=== PATIENT | female | born 1940 | race Caucasian/White ===

== ENCOUNTER 2021-06-14 05:38 | Inpatient (IN) | payer OTHER ==
[2021-06-13 11:31] LABS: COVID AG,FIA SOURCE NASOPHARYNGEAL
[~2021-06-14] VITALS: Ht 154.9 cm; Wt 48.6 kg
[~2021-06-14 05:38] MED LIST: AMLO-258 PO; ASPI-1450 PO; ATOR10TA84 PO; CHOL-35 PO; DONE10TA8 PO; FERR-89 PO; MEMA10TA11 PO; MIRT-89 PO; RINGERS SOLUTION,LACTATED 1,000 ML IV ONE; VALS160T2 PO
[2021-06-14] MEDS ORDERED: RINGERS SOLUTION,LACTATED 1,000 ML IV ONE ×2 (06:00→08:36)
[2021-06-14] MEDS ORDERED: SODIUM CL IRRIG SOLN BAG 3,000 ML IRRIG ONE (06:36)
[2021-06-14] MEDS ORDERED: BUPIVACAINE HCL/PF 0.5% 30 ML VIAL ONE (06:36)
[2021-06-14] MEDS ORDERED: BUPIVACAINE LIPOSOME/PF 1.3%-13.3MG/ML SUSPENSION 20 ML VIAL INJ ONE (06:45)
[2021-06-14] MEDS ORDERED: TRANEXAMIC ACID 1,000 MG in DEXTROSE 5%-WATER 50 ML IV ONE (06:45)
[2021-06-14] MEDS ORDERED: ACETAMINOPHEN 1000 MG/ISO-OSM 100 ML IV ONE ×2 (07:07→07:10)
[2021-06-14] MEDS ORDERED: HYDROmorphone 2 MG/ML VIAL IVP PRN ×2 (09:00)
[2021-06-14] MEDS ORDERED: FentaNYL CITRATE PF 100 MCG/2 ML VIAL IVP PRN (09:00)
[2021-06-14] MEDS ORDERED: SUGAMMADEX SODIUM 200 MG/2 ML VIAL IVP ONE (09:12)
[2021-06-14] MEDS ORDERED: BISACODYL 10 MG RECTAL RECTAL SUPPOSITORY PR PRN (09:45)
[2021-06-14] MEDS ORDERED: SODIUM CHLORIDE 0.9% 1,000 ML IV SCH (09:45)
[2021-06-14] MEDS ORDERED: BENZOCAINE/MENTHOL LOZENGE PO PRN (09:45)
[2021-06-14] MEDS ORDERED: MAG HYDROX/AL HYDROX/SIMETH 30 ML SUSP UDCUP PO PRN (09:45)
[2021-06-14] MEDS ORDERED: ONDANSETRON HCL 4 MG/2 ML VIAL IVP PRN (09:45)
[2021-06-14] MEDS ORDERED: DiphenhydrAMINE HCL 50 MG/ML VIAL IVP PRN (09:45)
[2021-06-14] MEDS ORDERED: HYDROmorphone 2 MG/ML VIAL ONE (10:28)
[2021-06-14] MEDS ORDERED: ATOR20TA86 PO (10:47)
[2021-06-14 11:01] VITALS: BP 148/71
[2021-06-14] MEDS: CeFAZolin 1 GM/DEXTROSE 50 ML IV SCH ×2 (14:00→21:16)
[2021-06-14 15:42] VITALS: BP 131/56
[2021-06-14] MEDS: CYCLOBENZAPRINE HCL 10 MG TABLET PO SCH ×2 (16:35→20:12)
[2021-06-14] MEDS: OxyCODONE HCL/ACETAMINOPHEN 5-325 MG TABLET PO PRN ×2 (17:32→21:25)
[2021-06-14] MEDS: RIVAROXABAN 10 MG TABLET PO SCH (17:32)
[2021-06-14 18:58] LABS: GLUCOMETER DEV NAME(LOC) 6S.1; GLUCOSE,POINT OF CARE 103 MG/DL (70-110)
[2021-06-14 19:32] VITALS: BP 143/74
[2021-06-14] MEDS: DOCUSATE SODIUM 100 MG CAPSULE PO SCH (20:10)
[2021-06-14] MEDS: FAMOTIDINE 20 MG TABLET PO SCH (20:13)
[2021-06-14] MEDS: ATORVASTATIN CALCIUM 20 MG TABLET PO SCH (20:13)
[2021-06-14] MEDS: MEMANTINE HCL 10 MG TABLET PO SCH (20:13)
[2021-06-14] MEDS: MIRTAZAPINE 15 MG TABLET PO SCH (20:13)
[2021-06-15] MEDS: OxyCODONE HCL/ACETAMINOPHEN 5-325 MG TABLET PO PRN ×2 (04:34→08:13)
[2021-06-15 04:40] VITALS: BP 133/98
[2021-06-15] MEDS ORDERED: ACETAMINOPHEN/ISO-OSM 1000 MG/100 ML BOTTLE IV ONE (06:08)
[2021-06-15] MEDS ORDERED: PROPOFOL 1% 20 ML VIAL IVP ONE (06:08)
[2021-06-15] MEDS ORDERED: DEXAMETHASONE SOD PHOS 4 MG/ML VIAL IVP ONE (06:08)
[2021-06-15] MEDS ORDERED: ROCURONIUM BROMIDE 10 MG/ML 5 ML VIAL IVP ONE (06:08)
[2021-06-15] MEDS ORDERED: ONDANSETRON HCL 4 MG/2 ML VIAL IVP ONE (06:08)
[2021-06-15] MEDS ORDERED: LIDOCAINE/PF 2% 5 ML VIAL IM ONE (06:08)
[2021-06-15] MEDS ORDERED: SUGAMMADEX SODIUM 200 MG/2 ML VIAL IVP ONE (06:08)
[2021-06-15 06:24] LABS: BASOPHILS % (AUTO) 0.7 % (0.0-2.0); EOSINOPHILS % (AUTO) 0.9 % (1.0-6.0); HEMATOCRIT 28.4 % (36-46); HEMOGLOBIN 9.6 g/dL (12.0-16.0); LYMPHOCYTES # (AUTO) 1.6 K/uL (1.0-4.8); LYMPHOCYTES % (AUTO) 25.3 % (22.0-44.0); MEAN CORPUSCULAR HEMOGLOBIN 32.7 pg (26.0-34.0); MEAN CORPUSCULAR HGB CONC 33.9 G/dL (31.0-37.0); MEAN CORPUSCULAR VOLUME 97 fL (80-100); MONOCYTES # (AUTO) 0.8 K/uL (0.1-1.0); NEUTROPHILS # (AUTO) 3.9 K/uL (1.8-7.7); NEUTROPHILS % (AUTO) 61.1 % (40.0-70.0); PLATELET COUNT (AUTO) 169 K/uL (150-450); RED BLOOD CELL COUNT(AUTO) 2.94 MIL/uL (4.00-5.20); RED CELL DISTRIBUTION WIDTH 13.5 % (11.5-14.5)
[2021-06-15 06:40] LABS: CALCIUM, TOTAL 8.3 mg/dL (8.8-10.5); CREATININE 1.23 mg/dL (0.60-1.30); POTASSIUM 4.1 mmol/L (3.5-5.1)
[2021-06-15 07:31] VITALS: BP 139/66
[2021-06-15] MEDS: OXYGEN THERAPY IH SCH ×2 (08:00→20:00)
[2021-06-15] MEDS: ASPIRIN 81 MG CHEWABLE TABLET PO SCH (08:10)
[2021-06-15] MEDS: MEMANTINE HCL 10 MG TABLET PO SCH ×2 (08:10→20:35)
[2021-06-15] MEDS: VALSARTAN 160 MG TABLET PO SCH (08:11)
[2021-06-15] MEDS: CYCLOBENZAPRINE HCL 10 MG TABLET PO SCH ×3 (08:11→20:35)
[2021-06-15] MEDS: DONEPEZIL HCL 10 MG TABLET PO SCH (08:11)
[2021-06-15] MEDS: AmLODIPine BESYLATE 10 MG TABLET PO SCH (08:11)
[2021-06-15] MEDS: DOCUSATE SODIUM 100 MG CAPSULE PO SCH ×2 (08:11→20:35)
[2021-06-15] MEDS: FAMOTIDINE 20 MG TABLET PO SCH ×2 (08:12→20:38)
[2021-06-15 09:40] VITALS: BP 115/61
[2021-06-15 11:34] VITALS: BP 104/61
[2021-06-15 15:39] VITALS: BP 98/64
[2021-06-15] MEDS: RIVAROXABAN 10 MG TABLET PO SCH (17:45)
[2021-06-15 20:00] VITALS: BP 110/55
[2021-06-15] MEDS: ATORVASTATIN CALCIUM 20 MG TABLET PO SCH (20:35)
[2021-06-15] MEDS: MIRTAZAPINE 15 MG TABLET PO SCH (20:38)
[2021-06-16 04:28] VITALS: BP 135/55
[2021-06-16 06:17] LABS: BASOPHILS % (AUTO) 0.7 % (0.0-2.0); EOSINOPHILS % (AUTO) 1.2 % (1.0-6.0); HEMATOCRIT 26.4 % (36-46); HEMOGLOBIN 8.6 g/dL (12.0-16.0); LYMPHOCYTES # (AUTO) 1.2 K/uL (1.0-4.8); LYMPHOCYTES % (AUTO) 17.5 % (22.0-44.0); MEAN CORPUSCULAR HEMOGLOBIN 31.7 pg (26.0-34.0); MEAN CORPUSCULAR HGB CONC 32.7 G/dL (31.0-37.0); MEAN CORPUSCULAR VOLUME 97 fL (80-100); MONOCYTES # (AUTO) 0.7 K/uL (0.1-1.0); MONOCYTES % (AUTO) 11.1 % (2.0-9.0); NEUTROPHILS # (AUTO) 4.6 K/uL (1.8-7.7); NEUTROPHILS % (AUTO) 69.5 % (40.0-70.0); PLATELET COUNT (AUTO) 146 K/uL (150-450); RED BLOOD CELL COUNT(AUTO) 2.72 MIL/uL (4.00-5.20); RED CELL DISTRIBUTION WIDTH 13.6 % (11.5-14.5)
[2021-06-16 07:41] VITALS: BP 138/58
[2021-06-16] MEDS: MEMANTINE HCL 10 MG TABLET PO SCH (09:25)
[2021-06-16] MEDS: FAMOTIDINE 20 MG TABLET PO SCH (09:25)
[2021-06-16] MEDS: OxyCODONE HCL/ACETAMINOPHEN 5-325 MG TABLET PO PRN ×2 (09:25→15:26)
[2021-06-16] MEDS: AmLODIPine BESYLATE 10 MG TABLET PO SCH (09:25)
[2021-06-16] MEDS: VALSARTAN 160 MG TABLET PO SCH (09:26)
[2021-06-16] MEDS: DOCUSATE SODIUM 100 MG CAPSULE PO SCH (09:26)
[2021-06-16] MEDS: DONEPEZIL HCL 10 MG TABLET PO SCH (09:26)
[2021-06-16] MEDS: ASPIRIN 81 MG CHEWABLE TABLET PO SCH (09:26)
[2021-06-16] MEDS: CYCLOBENZAPRINE HCL 10 MG TABLET PO SCH (09:26)
[2021-06-16 11:21] VITALS: BP 136/60
[2021-06-16] MEDS ORDERED: DOCU-270 PO (14:51)
[2021-06-16] MEDS ORDERED: RIVA10TA PO (14:55)
[2021-06-16] MEDS ORDERED: ACET-2247 PO (14:55)
[2021-06-16 15:26] VITALS: BP 100/46
[2021-06-16] MEDS ORDERED: FentaNYL CITRATE PF 100 MCG/2 ML VIAL IVP ONE (16:29)
== END 2021-06-16 16:30 | disposition home health service (06) | DRG 326 ==
LOC: 6N 05:38 → 6S 10:57
PROVIDERS: ADMIT Orthopaedic Surgery; ATTEND Orthopaedic Surgery
PROC: 0SRD0J9 Replacement of Left Knee Joint with Synthetic Substitute, Cemented, Open Approach (ICD-10-PCS; principal; 2021-06-14 07:30)
DX: M17.12 Unilateral primary osteoarthritis, left knee (principal); F03.90 Unspecified dementia, unspecified severity, without behavioral disturbance, psychotic disturbance, mood disturbance, and anxiety; E78.5 Hyperlipidemia, unspecified; I10 Essential (primary) hypertension; Z20.822 Contact with and (suspected) exposure to COVID-19
CPT/HCPCS: 80048; 82962; 85025; 87081; 88300; 93005; 97110; 97116; 97161; 97165; 97530; 97535; C9290; G0238; J0131; J0690; J1100; J1170; J2405; J2704; J3010; J3490; J7060; J7120; Q9967